=== PATIENT | male | born 1945 | race Caucasian/White ===

== ENCOUNTER → 2017-11-26 | Day surgery (SDC) | payer OTHER ==
[~2017-11-26] VITALS: Ht 167.6 cm; Wt 95.3 kg
--- NOTE | 2017-11-26 09:03 | Operative Report ---
Operative/Inv Procedure Report Surgery Date: 11/26/17 Name of Procedure: left ESWL Pre-Operative Diagnosis: left renal stones 9,7, and 6mm Post-Operative Diagnosis: same Estimated Blood Loss: scant Surgeon/Press Tender [employer]: Bailey Bae MD Anesthesia: local monitored anesthesi Complications: none Condition: stable Operative Indication: left renal stones Operative/Procedure Note Note: 72yo male with bilateral kidney stones discovered during microhematuria workup. It is likely the source of his MH vs prostate. We discussed at length the r,b,a of ESWL vs URS with laser lithotripsy. Discussed the factors that contribute eg anatomy, body habitus, stone burden, stone hardness and location. He would like to proceed with ESWL and possible stent placement. Consent was signed in the holding area after all questions were answered. Patient was brought to the operating room and placed on the table in the supine position. Time out was performed. IV kefzol was started. ESWL was started after IV sedation was given adequately and the 9, 7, and 6mm stone were located in the midpole and lower pole. The shockwaves were started at a power of 10 for 100 shocks, then power of 11 for 100 shocks, then power of 12 for 100 shocks, then power of 13 for 100 shocks and finally power of 20 for 2100 shocks. Patient tolerated the procedure well. The 9mm stone was visibly changed at the end of the procedure. The other stones were not addressed so a stent was not placed. Patient was transferred to [facility] in stable condition. Findings: three stones 9,7, and 6mm in size 9mm responded well to the ESWL. Discharge Disposition: Same Day Admissions
== END ==
LOC: STS 02:13
DX: N20.0 Calculus of kidney (principal); R31.0 Gross hematuria; N40.0 Benign prostatic hyperplasia without lower urinary tract symptoms; I10 Essential (primary) hypertension; Z87.891 Personal history of nicotine dependence
CPT/HCPCS: 36415; J0690; J2250